=== PATIENT | female | born 1995 | race Caucasian/White ===

== ENCOUNTER 2019-11-11 02:25 | Emergency (ER) | payer OTHER ==
[~2019-11-11] VITALS: Ht 165.1 cm; Wt 87.4 kg
[2019-11-11 02:29] VITALS: BP 119/57
--- NOTE | 2019-11-11 02:49 | NUR ---
UNABLE TO GET EKG while is hyperventilating.
[2019-11-11] MEDS ORDERED: ALBUTEROL SULFATE 2.5 MG/3 ML NPPB ONE (03:00)
[2019-11-11] MEDS ORDERED: LORazepam 1MG TABLET PO ONE (03:00)
[2019-11-11] MEDS ORDERED: PLEASE ENTER ALLERGIES MC SCH (03:00)
[2019-11-11] MEDS ORDERED: ALBUTEROL SULFATE 2.5 MG/3 ML ONE (03:04)
[2019-11-11] MEDS ORDERED: LORazepam 1MG TABLET ONE (03:04)
--- NOTE | 2019-11-11 03:18 | NUR ---
Pt reports good effect from neb tx. Speaking in clear, full sentences. O2 remains 100% RA s/p neb
--- NOTE | 2019-11-11 03:30 | NUR ---
pt to be D/C . per Dr. Godfrey, EKG to be cancelled
== END 2019-11-11 03:45 | disposition home or self-care (01) ==
LOC: ED 02:55
DX: J45.31 Mild persistent asthma with (acute) exacerbation (principal); R00.0 Tachycardia, unspecified
CPT/HCPCS: 94640; 99283; J7613